=== PATIENT | female | born 1955 | race Caucasian/White ===

== ENCOUNTER 2023-03-13 08:52 | Emergency (ER) | payer SELFPAY ==
[2023-03-13] VITALS (15 sets, daily range): BP systolic 178–232; BP diastolic 92–118; PULSE 76–88; RESP 14–24; O2SAT 93–98; BMI 37.8
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
--- NOTE | 2023-03-13 09:09 | DI.CT.S_ITS ---
PROCEDURE: CT ANGIO HEAD AND NECK INDICATIONS: left sided weakness x 1 month and fall TECHNIQUE: Pre-contrast 4.5 mm thick sections acquired from the foramen magnum to the vertex. After the administration of intravenous contrast, 1 mm thick sections acquired from the aortic arch through the [place] of [place]. Post-contrast 4.5 mm thick sections then re-acquired from the foramen magnum to the vertex. MIP reformats of the arterial vasculature were utilized. For radiation dose reduction, the following was used: automated exposure control, adjustment of mA and/or kV according to patient size. COMPARISON: None. FINDINGS: Noncontrast CT Brain: Cerebrum, cerebellum and brainstem: Atrophy and multifocal white matter chronic ischemic change. 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 No white matter disease. Rivera-white distinction is well preserved throughout the exam. Ventricles: Appropriate size and position. No evidence of hydrocephalus. Skull base: The bony sella, pituitary gland and infundibulum are unremarkable. Posterior fossa and cerebellum are unremarkable. Visualized portions of the external auditory canals and tympanic cavity are within normal limits. Calvarium and Scalp: No scalp soft tissue swelling. The underlying calvarium is intact without skull fracture or lytic lesion. Paranasal Sinuses: Complete opacification left maxillary sinus with remodeling of the medial wall may reflect a mucocele or chronic mucosal sinus disease Mastoids: Unremarkable as visualized. No mastoid effusion. Cerebral CT Angiogram: Internal carotid arteries: Noncalcified atherosclerotic plaque in proximal left ICA results in 40% stenosis utilizing NASCET criteria. No stenosis in the right proximal ICA Anterior cerebral arteries: Unremarkable. No significant stenosis. No occlusion. No aneurysm. Middle cerebral arteries: Unremarkable. No significant stenosis. No occlusion. No aneurysm. Posterior cerebral arteries: Unremarkable. No significant stenosis. No occlusion. No aneurysm. Basilar artery: Unremarkable. No significant stenosis. No occlusion. No aneurysm. Vertebral arteries: Unremarkable. No significant stenosis. No dissection or occlusion. Dural venous sinuses: Unremarkable given phase of enhancement. Other: Arterial phase brain parenchyma unremarkable. Neck CT Angiogram: Internal carotid arteries: Unremarkable. No significant stenosis. No dissection or occlusion. Common carotid arteries: Unremarkable. No significant stenosis. No dissection or occlusion. External carotid arteries: Unremarkable. No occlusion. Vertebral arteries: Unremarkable. No significant stenosis. No dissection or occlusion. Aortic arch and mediastinum: Unremarkable. Other: Arterial phase neck soft tissue within normal limits. Both lung apices are clear. IMPRESSION: 1. Mild atherosclerotic plaque results in 40% proximal left ICA stenosis utilizing NASCET criteria. No intracranial large vessel occlusion, aneurysm or vascular malformation. 2. Incidental left maxillary sinus chronic mucosal sinus disease or possible mucocele, partially imaged Note: Any reported proximal ICA stenosis was calculated using NASCET guidelines. Approved by: Mick Mckeon M.D. on 03/13/2023 at 10:40
--- NOTE | 2023-03-13 09:31 | PC.NURSE ---
pt states starting around february 13 she has had left sided weakness mainly in her arm but also in her left leg. she has been seeing her PCP for this and given a referal to Ortho for nerve problems but also has an MRI with [facility] tomorrow to rule out possble silent stroke per EMS. pt states she has new onset SOB during this time and has been incontinent or urine since this time. she has always has some leaking and urgency but now she just cant make it to the bathroom in time. pt does have a diaper rash under her panus upon arrival to ER. Bruise to back of left arm noted as well
[2023-03-13 09:34] LABS: Add Manual Diff / Slide Review NO; Basophils Absolute Auto 100 /uL (0-100); Eosinophils Absolute Auto 0 /uL (0-450); Eosinophils Percent Auto 0.2 % (2-4); Hematocrit 49.2 % (36-46); Hemoglobin 16.7 g/dL (12.0-16.0); Lymphocytes Absolute Auto 1500 /uL (1100-4500); Lymphocytes Percent Auto 12.1 % (25-40); Mean Corpuscular HGB Conc 33.9 % (30-36); Mean Corpuscular Hemoglobin 29.2 PG (26-34); Mean Corpuscular Volume 86.1 fL (80-100); Monocytes Absolute Auto 700 /uL (0-900); Monocytes Percent Auto 5.8 % (3-14); Neutrophils Absolute Auto 10100 /uL (1500-7000); Neutrophils Percent Auto 80.9 % (50-75); Platelet Count 158 X10^3/uL (150-400); Red Blood Cell Count 5.72 X10^6/uL (4.0-5.2); Red Cell Distribution Width 14.7 % (11.6-14.8); White Blood Cell Count 12.5 X10^3/uL (4.5-11.0)
[2023-03-13 09:45] LABS: Alanine Aminotransferase 32 IU/L (<35); Albumin 4.1 g/dL (3.5-5.0); Albumin Globulin Ratio 1.1 (1.0-2.8); Alkaline Phosphatase 136 U/L (38-126); Aspartate Aminotransferase 29 IU/L (14-36); BUN Creatinine Ratio 23.4 (6-22); Bilirubin Total 1.2 mg/dL (0.2-1.3); Blood Urea Nitrogen 18 mg/dL (7-17); Calcium 9.1 mg/dL (8.4-10.2); Carbon Dioxide 29 mmol/L (22-32); Chloride 102 mmol/L (98-107); Creatine Kinase 104 U/L (30-135); Estimated Glomerular Filt Rate > 60 mL/min (>60); Globulin 3.6 g/dL (1.7-4.1); Glucose 295 mg/dL (80-110); HEMOLYSIS < 15 (0-50); Lipase 152 U/L (23-300); Sodium 138 mmol/L (137-145); Total Protein 7.7 g/dL (6.3-8.2)
[2023-03-13 09:56] LABS: Troponin I < 0.012 ng/mL (0.01-0.034)
[2023-03-13 10:00] LABS: CKMB % Relative Index 2.2 % (1.5-5.0); Creatine Kinase MB 2.24 ng/mL (<2.37)
--- NOTE | 2023-03-13 10:04 | DI.CT.S_ITS ---
PROCEDURE: CT PEL WO CON INDICATIONS: right hip pain TECHNIQUE: Noncontrast 3 mm axial sections acquired through the bony pelvis, with coronal and sagittal reformatting. COMPARISON: None. FINDINGS: Image quality: Excellent. Bones: Normal bone mineralization. Joint space is preserved. No evidence of fracture. Degenerative changes noted in the lower lumbar spine. Severe central stenosis noted at L4-5 Atherosclerotic vascular calcification noted the common iliac vasculature. Multiple diverticula arise from the sigmoid colon without evidence of diverticulitis. IMPRESSION: No evidence of pelvis or right proximal femoral fracture Degenerative lower lumbar spine results in severe L4-5 central stenosis Approved by: Mick Mckeon M.D. on 03/13/2023 at 10:00
--- NOTE | 2023-03-13 10:52 | PC.NURSE ---
sister dieudonne called, pt gave verbal permission to update her. sister informed that pt blood work has come back but we are waiting on results of scans to double check her head and pelvis. will call back with further update when we have more clear picture.
[2023-03-13 13:27] LABS: Appearance Urine UA CLEAR; Bilirubin Urine UA NEGATIVE (NEGATIVE); Color Urine UA YELLOW; Glucose Urine UA 2+ g/dL (Negative); Ketones Urine UA TRACE (NEGATIVE); Leukocyte Esterase Urine UA NEGATIVE (NEGATIVE); Nitrite Urine UA NEGATIVE (Negative); Occult Blood Urine UA TRACE-INTACT (Negative); Protein Urine UA NEGATIVE (Negative); Specific Gravity Urine UA 1.015 (1.000-1.035); Urobilinogen Urine UA 0.2 E.U./dL (0.2)
[2023-03-13 13:40] LABS: RBC Urine None Seen (0-5/HPF); WBC Urine None Seen (0-5/HPF)
[2023-03-13 13:41] LABS: Bacteria Urine None Seen; Culture Indicated Urine Cult Not Indicated; Squamous Epithelial Cell Urine None Seen (0-5/HPF)
== END 2023-03-13 14:14 | disposition home or self-care (01) ==
PROVIDERS: Emergency Provider Emergency Medicine
DX: S70.01XA Contusion of right hip, initial encounter (principal); S89.92XA Unspecified injury of left lower leg, initial encounter; R53.1 Weakness; M54.50 Low back pain, unspecified; R29.6 Repeated falls; W18.30XA Fall on same level, unspecified, initial encounter
CPT/HCPCS: 36415; 70496; 70498; 72192; 80053; 81001; 82550; 82553; 83690; 84484; 85025; 93005; 99284

== ENCOUNTER → 2023-04-06 14:57 | Outpatient (CLI) | payer SELFPAY ==
--- NOTE | 2023-04-06 | DI.MRI.S_ITS ---
PROCEDURE: MR CERVICAL SPINE WO CON INDICATIONS: CERVICALGIA TECHNIQUE: Noncontrast sagittal T1 spin echo and T2 fast spin echo, sagittal STIR, foraminal oblique sagittal T2 fast spin echo, and axial gradient echo or T2 fast spin echo through the cervical spine. COMPARISON: [facility] [place], CR, XR CERVICAL SPINE WITH OBLIQUES, 02/27/2023, 13:31. FINDINGS: Image quality: Excellent. Alignment and Curvature: There is slight straightening of the normal cervical lordosis. Trace anterolisthesis C2 on three and trace retrolisthesis C3 on four. Craniocervical junction appears normal. Bone Marrow: Marrow demonstrates normal overall signal. Spinal Cord: Visualized spinal cord has normal size and signal. No cerebellar tonsillar herniation. Paraspinous Soft Tissues: No paravertebral masses. Prevertebral soft tissues are normal in thickness. C2-C3: Normal appearance. C3-C4: Wmmu-wy-gfvxoycz disc osteophyte complex and uncovertebral joint hypertrophy, right greater than left. Mild facet arthropathy. Mild central canal narrowing, flattening of the anterior CSF space. Moderate right, and mild left neural foraminal narrowing. C4-C5: Mild circumferential disc osteophyte complex. Mild facet arthropathy. Moderate right and mild left neural foraminal narrowing. C5-C6: Mild uncovertebral joint hypertrophy. Mild to moderate bilateral neural foraminal narrowing. C6-C7: Normal appearance. C7-T1: Normal appearance. IMPRESSION: 1. Disc, endplate, and facet joint degeneration at C3-4 contributes to a mild central canal narrowing and bilateral foraminal narrowing, worse on the right. 2. Mild degenerative endplate and facet joint changes cause bilateral foraminal narrowing at C4-5 as described above. Dictated by: Ilsa Skinner M.D. on 04/06/2023 at 16:29 Approved by: Ilsa Skinner M.D. on 04/06/2023 at 16:40
== END ==
PROVIDERS: Referring Provider Physical Medicine & Rehabilitation Pain Medicine; Visit Provider Physical Medicine & Rehabilitation Pain Medicine
DX: M54.2 Cervicalgia (principal); M48.02 Spinal stenosis, cervical region
CPT/HCPCS: 72141

== ENCOUNTER → 2023-08-21 07:53 | Outpatient (CLI) | payer SELFPAY ==
--- NOTE | 2023-08-21 08:05 | DI.RAD.S_ITS ---
PROCEDURE: XR HIP W PEL IF DONE LT 2V INDICATIONS: hip pain TECHNIQUE: AP pelvis with lateral view(s) of the left hip(s). COMPARISON: CT, CT PEL WO CON, 03/13/2023, 9:54. FINDINGS: Bones: No fractures or dislocations. Pelvic ring appears intact. No suspicious bony lesions. Mild bilateral degenerative hip joint space narrowing. No erosions. Mild degenerative changes are present the lower lumbar spine. Unchanged appearance of sclerosis along the left inferior pubic symphysis stable compared to prior CT exam. Soft tissues: The visualized bowel gas pattern is normal. No suspicious soft tissue calcifications. IMPRESSION: Early arthritic changes as above. Stable sclerosis at the pubic symphysis. This could be related to prior trauma or asymmetrical degenerative change. If pain is present within this region, MRI may be obtained for further evaluation. Dictated by: Carlee Rojas M.D. on 08/21/2023 at 15:08 Approved by: aCrlee Rojas M.D. on 08/21/2023 at 15:10
[2023-08-21 09:58] LABS: Add Manual Diff / Slide Review NO; Basophils Absolute Auto 100 /uL (0-100); Basophils Percent Auto 1.1 % (0-2); Eosinophils Absolute Auto 100 /uL (0-450); Eosinophils Percent Auto 1.5 % (2-4); Hematocrit 47.7 % (36-46); Hemoglobin 16.5 g/dL (12.0-16.0); Lymphocytes Absolute Auto 2200 /uL (1100-4500); Lymphocytes Percent Auto 29.8 % (25-40); Mean Corpuscular HGB Conc 34.5 % (30-36); Mean Corpuscular Hemoglobin 30.7 PG (26-34); Mean Corpuscular Volume 88.8 fL (80-100); Monocytes Absolute Auto 500 /uL (0-900); Monocytes Percent Auto 7.4 % (3-14); Neutrophils Absolute Auto 4400 /uL (1500-7000); Neutrophils Percent Auto 60.2 % (50-75); Platelet Count 185 X10^3/uL (150-400); Red Blood Cell Count 5.37 X10^6/uL (4.0-5.2); Red Cell Distribution Width 14.7 % (11.6-14.8); White Blood Cell Count 7.3 X10^3/uL (4.5-11.0)
[2023-08-21 10:01] LABS: Hemoglobin A1C% w Est Avg Glu 6.9 % (4.0-6.0)
[2023-08-21 10:25] LABS: Cholesterol 223 mg/dL (140-199); HDL Cholesterol 85 mg/dL (40-60); LDL Cholesterol Calculated 102 mg/dL (<100); Triglycerides 178 mg/dL (35-150)
[2023-08-21 10:55] LABS: TSH w/ Reflex to FT4 3.19 uIU/mL (0.47-4.68)
[2023-08-21 11:02] LABS: Creatinine Urine Random 112.1 mg/dL
[2023-08-21 11:09] LABS: Microalbumi Creatinin Ratio Ur 111.5 ug/mg CR (<30); Microalbumin Urine Random 12.5 mg/dL (0-1.6)
[2023-08-21 11:22] LABS: HIV 1 & 2 Ab/Ag 4th Gen Combo NEGATIVE (NEGATIVE); Hep C Virus Ab w/Reflex Quant NEGATIVE s/c (NEGATIVE)
== END ==
PROVIDERS: PCP Family Medicine; Referring Provider Family Medicine; Visit Provider Family Medicine
DX: M25.552 Pain in left hip (principal); G89.29 Other chronic pain; I10 Essential (primary) hypertension; R73.9 Hyperglycemia, unspecified; Z11.59 Encounter for screening for other viral diseases; Z11.4 Encounter for screening for human immunodeficiency virus [HIV]
CPT/HCPCS: 36415; 73502; 80061; 82043; 82570; 83036; 84443; 85025; 86803; 87389

== ENCOUNTER → 2024-05-16 11:02 | Outpatient (CLI) | payer SELFPAY ==
[2024-05-16 12:06] LABS: Hemoglobin A1C% w Est Avg Glu 6.5 % (4.0-6.0)
== END ==
LOC: LAB 11:03
PROVIDERS: PCP Family Medicine; Referring Provider Family Medicine; Visit Provider Family Medicine
DX: E11.9 Type 2 diabetes mellitus without complications (principal)
CPT/HCPCS: 36415; 83036

== ENCOUNTER 2024-05-17 14:25 | Emergency (ER) | payer SELFPAY ==
[2024-05-17] VITALS (11 sets, daily range): BP systolic 148–209; BP diastolic 72–97; PULSE 71–83; RESP 16; TEMP 36.5; O2SAT 96–98; BMI 30.2
--- NOTE | 2024-05-17 14:46 | EKG_ITS ---
[address] [address] Test Date: 2024-05-17 Pat Name: Jasmine Arriola Department: [facility] Room: Gender: Female Police Manager: HOMER : 1955 Requested By: Order Number: [id number] Reading MD: Augie Artis MD Measurements Intervals [place] Rate: 70 P: 51 CO: 174 QRS: 45 QRSD: 96 T: 53 QT: 418 QTc: 451 Interpretive Statements Sinus rhythm with premature atrial complexes Electronically Signed On 05-17-2024 22:35:14 PDT by Augie Artis MD
[2024-05-17 14:49] LABS: Add Manual Diff / Slide Review NO; Basophils Absolute Auto 100 /uL (0-100); Basophils Percent Auto 0.6 % (0-2); Eosinophils Absolute Auto 100 /uL (0-450); Eosinophils Percent Auto 0.7 % (2-4); Hematocrit 42.9 % (36-46); Hemoglobin 14.4 g/dL (12.0-16.0); Lymphocytes Absolute Auto 1700 /uL (1100-4500); Lymphocytes Percent Auto 16.9 % (25-40); Mean Corpuscular HGB Conc 33.7 % (30-36); Mean Corpuscular Hemoglobin 29.7 PG (26-34); Mean Corpuscular Volume 88.3 fL (80-100); Monocytes Absolute Auto 600 /uL (0-900); Monocytes Percent Auto 5.8 % (3-14); Neutrophils Absolute Auto 7600 /uL (1500-7000); Platelet Count 194 X10^3/uL (150-400); Red Blood Cell Count 4.85 X10^6/uL (4.0-5.2); Red Cell Distribution Width 14.4 % (11.6-14.8)
[2024-05-17] MEDS: MECLIZINE HCL 12.5 MG TABLET 25 MG PO (14:56)
--- NOTE | 2024-05-17 15:00 | ED.NAVMDI ---
HPI - Nausea/Vomiting/Diarrhea General Chief complaint: Nausea/Vomiting/Diarrhea Stated complaint: Vertigo with N/V Time Seen by Provider: 05/17/24 14:40 Source: patient and EMS Mode of arrival: EMS History of Present Illness HPI Narrative: Patient is a 69-year-old female. Has a history of a TIA. Not on blood thinners who is here for evaluation of 3 weeks of occasional episodes of vertigo. She states that it normally occurs with change in position specifically when she goes from standing to lying down. Causes her to have quite a bit of nausea. Today she has a headache. No numbness and tingling in the upper and lower extremities. Before today she stated that she would just wait in the symptoms would resolve. Today symptoms were more persistent. She also describes a fullness in her head. Related Data Previous Rx's Medication Instructions Recorded blood sugar diagnostic #100 ea 08/17/23 blood-glucose meter #1 ea 08/17/23 lancets 28 gauge #100 ea 08/17/23 Disabled Parking Permint #1 ea 09/14/23 atorvastatin 20 mg tablet (Lipitor) 20 mg PO BEDTIME cholesterol #90 09/14/23 tabs losartan 50 mg tablet 50 mg PO DAILY blood pressure #90 09/14/23 tabs metformin 500 mg tablet,extended 500 mg PO BID diabetes #180 tabs 09/14/23 release 24 hr amlodipine 5 mg tablet (Norvasc) 5 mg PO DAILY #90 tabs 02/15/24 bupropion HCl 150 mg 24 hr tablet, 150 mg PO QAM #30 tabs 02/15/24 extended release (Wellbutrin XL) fluticasone propionate 50 2 spray intranasal DAILY PRN nasal 05/16/24 mcg/actuation nasal congestion #16 grams spray,suspension (Flonase Allergy Relief) meclizine 25 mg tablet 25 mg PO TID PRN dizziness 30 days 05/16/24 #90 tabs ondansetron 4 mg disintegrating 4 mg PO Q6H PRN nausea and 05/17/24 tablet vomiting #14 tabs Allergies Allergy/AdvReac Type Severity Reaction Status Date / Time codeine Allergy Verified 05/16/24 10:20 Review of Systems Review of Systems ROS Unobtainable: All systems reviewed & are unremarkable except as noted in HPI and below Patient History Medical History Mixed hyperlipidemia Type 2 diabetes mellitus without complication, with no history of insulin use Fall (~03/13/23) Near sighted Plantar warts Osteoarthritis (~1974) Allergies Rheumatic fever Mumps Measles Chicken pox Anemia Thyroid disease Tobacco dependence Depression, unspecified Benign essential HTN Surgical History (Updated 09/13/23 @ 19:37 by Pau Brooks) Anesthesia History of laparoscopy (~1990) History of section (~01/28/85) History of tonsillectomy (~1967) History of hysterectomy (~1992) Family History (Updated 09/13/23 @ 19:41 by Pau Brooks) Father History of heart disease Mother History of heart disease Congestive heart failure Sister History of heart disease Grandfather History of heart disease Grandmother History of heart disease Grandfather Stroke Social History Smoking Status: Current every day smoker Smoking Status: Current every day smoker Substance Use Type: marijuana Exam Initial Vital Signs Initial Vital Signs: Vital Signs Temperature 97.7 F 05/17/24 14:26 Pulse Rate 75 05/17/24 14:26 Respiratory Rate 16 05/17/24 14:26 Blood Pressure 194/91 H 05/17/24 14:26 Pulse Oximetry 98 05/17/24 14:26 Oxygen Delivery Method Room Air 05/17/24 14:26 Const General: cooperative, comfortable and No ill appearing HENMT Head: normal to inspection and normocephalic Resp Effort & Inspection: normal respiratory effort Auscultation: clear to auscultation bilaterally Cardio Rate: regular rate Rhythm: regular rhythm GI Inspection: normal to inspection Neuro General: patient alert, patient awake, patient oriented x3 and moves all extremities Cognition: normal cognition Speech: speech normal Gait: normal gait Course Orders Ordered: ED Orders 05/17/24 14:38 Complete Blood Count AUTO DIFF Stat Comprehensive Metabolic Panel Stat Lipase Stat EKG-12 Lead Stat 05/17/24 15:00 CT head/brain wo con Stat Ondansetron HCl (Ondansetron 4 Mg/2 Ml Inj) 4 mg IV NOW PRN PRN Reason: Nausea And Vomiting Ondansetron HCl (Ondansetron 4 Mg Odt) 4 mg PO NOW PRN PRN Reason: Nausea And Vomiting Discontinued Medications Meclizine HCl (Meclizine Hcl 12.5 Mg Tablet) 25 mg PO NOW ONE Stop: 05/17/24 14:53 Last Admin: 05/17/24 14:56 Dose: 25 mg Documented By: ROBERT Vital Signs Vital signs: Vital Signs - 8 hr 05/17/24 14:26 05/17/24 14:32 05/17/24 14:32 Temperature 97.7 F Pulse Rate 75 77 Respiratory Rate 16 Blood Pressure 194/91 H 194/91 H Pulse Oximetry 98 96 Oxygen Delivery Method Room Air Room Air 05/17/24 15:00 05/17/24 15:33 05/17/24 15:49 Temperature Pulse Rate 73 71 72 Respiratory Rate Blood Pressure Pulse Oximetry 98 97 97 Oxygen Delivery Method Room Air Room Air 05/17/24 15:49 05/17/24 16:00 05/17/24 16:00 Temperature Pulse Rate 74 Respiratory Rate Blood Pressure 167/76 H 148/72 H Pulse Oximetry 97 Oxygen Delivery Method Room Air MDM - Nausea/Vomiting/Diarrhea Lab Data Attestation: I reviewed the patient's lab results. 05/17/24 14:38 05/17/24 14:38 Labs: Lab Results 05/17/24 Range/Units 14:38 WBC 10.0 (4.5-11.0) X10^3/uL RBC 4.85 (4.0-5.2) X10^6/uL Hgb 14.4 (12.0-16.0) g/dL Hct 42.9 (36-46) % MCV 88.3 (80-100) fL MCH 29.7 (26-34) PG MCHC 33.7 (30-36) % RDW 14.4 (11.6-14.8) % Plt Count 194 (150-400) X10^3/uL Neut % (Auto) 76.0 H (50-75) % Lymph % (Auto) 16.9 L (25-40) % [place] % (Auto) 5.8 (3-14) % Eos % (Auto) 0.7 L (2-4) % Baso % (Auto) 0.6 (0-2) % Neut # (Auto) 7600 H (3141-9032) /uL Lymph # (Auto) 1700 (4175-0010) /uL [place] # (Auto) 600 (0-900) /uL Eos # (Auto) 100 (0-450) /uL Baso # (Auto) 100 (0-100) /uL Sodium 141 (137-145) mmol/L Potassium 3.6 (3.4-5.1) mmol/L Chloride 108 H (98-107) mmol/L Carbon Dioxide 27 (22-32) mmol/L BUN 25 H (7-17) mg/dL Creatinine 1.01 (0.52-1.04) mg/dL Estimated GFR > 60 (>60) mL/min BUN/Creatinine Ratio 24.8 H (6-22) Glucose 143 H (80-110) mg/dL Calcium 9.9 (8.4-10.2) mg/dL Total Bilirubin 0.8 (0.2-1.3) mg/dL AST 21 (14-36) IU/L ALT 22 (<35) IU/L Alkaline Phosphatase 107 (38-126) U/L Total Protein 7.8 (6.3-8.2) g/dL Albumin 4.4 (3.5-5.0) g/dL Globulin 3.4 (1.7-4.1) g/dL Albumin/Globulin Ratio 1.3 (1.0-2.8) Lipase 226 (23-300) U/L Imaging Data CT scan - head: Radiologist's Impression: PROCEDURE: CT HEAD/BRAIN WO CON INDICATIONS: vertigo with headache TECHNIQUE: Noncontrast 4.5 mm thick angled axial sections acquired from the foramen magnum to the vertex, with coronal and sagittal reformats. For radiation dose reduction, the following was used: automated exposure control, adjustment of mA and/or kV according to patient size. COMPARISON: CT angiogram of head and neck dated 03/13/2023. FINDINGS: Image quality: Diagnostic. CSF spaces: Basal cisterns are patent. No extra-axial fluid collections. The ventricles are symmetric in size and shape. Brain: No intracranial bleeds or masses. There is cerebral volume loss for age, with resultant ventricular and sulcal prominence. There are periventricular and deep white matter chronic small vessel ischemic changes. There is intracranial internal carotid artery atherosclerosis. Skull and face: Calvarium and visualized facial bones appear intact, without suspicious lesions. Sinuses: Again noted is complete opacification of left maxillary sinus with remodeling of medial wall suggestive of mucocele or chronic mucosal sinus disease. IMPRESSION: No acute intracranial pathology. No significant changes from previous study. Extensive periventricular and deep white matter chronic small vessel ischemic changes. ECG Data Attestation: I personally reviewed and interpreted this ECG as follows: Interpretation: Sinus rhythm Ventricular rate is 70 Normal axis Normal QRS Normal QTC No ST T wave changes MDM Narrative Medical decision making narrative: Patient has positional vertigo. We were able to reproduce that here in the emergency department. Her head CT is unremarkable. Labs unremarkable. EKG is unremarkable. She was actually seen by her primary doctor yesterday and was given a prescription for meclizine and referral for physical therapy. I feel that this is appropriate. Will hold on any more advanced imaging for now. She was afebrile. Will send home with a prescription for Zofran. We did discuss the Maricarmen maneuver. Discussed return precautions and follow-up instructions. She expressed understanding and agreement with plan. Discharge Plan Departure Patient Disposition: Home Clinical Impression: Vertigo Instructions: DI for Vertigo Activity Restrictions/Additional Instructions: I do recommend that you look up and watch a video on the Maricarmen maneuver. This can be helpful with treatment of the vertigo. Use the meclizine that you were given a prescription for yesterday by your primary doctor. Continue rest of your medications as directed. Return to the emergency department for new symptoms. Prescriptions: New ondansetron 4 mg tablet,disintegrating 4 mg PO Q6H PRN (Reason: nausea and vomiting) Qty: 14 0RF No Action (DME) blood-glucose meter Misc See Rx Instructions .ROUTE .MEDSUPPLY Qty: 1 0RF Rx Instructions: As directed, once daily as needed. brand of choice (DME) lancets 28 gauge misc See Rx Instructions .ROUTE .MEDSUPPLY Qty: 100 3RF Rx Instructions: As directed, once daily as needed. brand of choice (DME) blood sugar diagnostic Strip See Rx Instructions .ROUTE .MEDSUPPLY Qty: 100 3RF Rx Instructions: As directed, once daily as needed. brand of choice metformin 500 mg tablet extended release 24 hr 500 mg PO BID Qty: 180 3RF losartan 50 mg tablet 50 mg PO DAILY Qty: 90 3RF (DME) Disabled Parking Permint See Rx Instructions .ROUTE .MEDSUPPLY Qty: 1 0RF Rx Instructions: I find this patient to be medically disabled and qualified for Disabled Parking as indicated and signed on the Accompanying Disabled Parking Application for individuals. atorvastatin [Lipitor] 20 mg tablet 20 mg PO BEDTIME Qty: 90 3RF amlodipine [Norvasc] 5 mg tablet 5 mg PO DAILY Qty: 90 3RF bupropion HCl [Wellbutrin XL] 150 mg tablet extended release 24 hr 150 mg PO QAM Qty: 30 11RF fluticasone propionate [Flonase Allergy Relief] 50 mcg/actuation spray,suspension 2 spray intranasal DAILY PRN (Reason: nasal congestion) Qty: 16 11RF Rx Instructions: administer into each nostril meclizine 25 mg tablet 25 mg PO TID PRN (Reason: dizziness) 30 Days Qty: 90 5RF Referrals: Ford Chairez MD [Physician] - Calixto Johnson DO [Primary Care Provider] - Stand Alone Forms: Patient Portal/API
[2024-05-17 15:01] LABS: Alanine Aminotransferase 22 IU/L (<35); Albumin 4.4 g/dL (3.5-5.0); Albumin Globulin Ratio 1.3 (1.0-2.8); Alkaline Phosphatase 107 U/L (38-126); Aspartate Aminotransferase 21 IU/L (14-36); BUN Creatinine Ratio 24.8 (6-22); Bilirubin Total 0.8 mg/dL (0.2-1.3); Blood Urea Nitrogen 25 mg/dL (7-17); Calcium 9.9 mg/dL (8.4-10.2); Carbon Dioxide 27 mmol/L (22-32); Chloride 108 mmol/L (98-107); Estimated Glomerular Filt Rate > 60 mL/min (>60); Globulin 3.4 g/dL (1.7-4.1); Glucose 143 mg/dL (80-110); HEMOLYSIS < 15 (0-50); Lipase 226 U/L (23-300); Potassium 3.6 mmol/L (3.4-5.1); Sodium 141 mmol/L (137-145); Total Protein 7.8 g/dL (6.3-8.2)
== END 2024-05-17 17:20 | disposition home or self-care (01) ==
PROVIDERS: Emergency Provider Emergency Medicine; PCP Family Medicine
DX: R42 Dizziness and giddiness (principal); I10 Essential (primary) hypertension; F17.200 Nicotine dependence, unspecified, uncomplicated
CPT/HCPCS: 70450; 80053; 81003; 83690; 85025; 93005; 99283; 99284

== ENCOUNTER → 2024-11-14 11:13 | Outpatient (CLI) | payer SELFPAY ==
[2024-11-14 12:44] LABS: Hemoglobin A1C% w Est Avg Glu 5.6 % (4.0-6.0)
== END ==
LOC: LAB 11:15
PROVIDERS: PCP Family Medicine; Referring Provider Family Medicine; Visit Provider Family Medicine
DX: E11.9 Type 2 diabetes mellitus without complications (principal); I10 Essential (primary) hypertension
CPT/HCPCS: 36415; 83036

== ENCOUNTER → 2025-10-08 16:30 | Outpatient (ROUT) | payer SELFPAY ==
[2025-10-08 16:36] LABS: Appearance Urine UA CLOUDY; Bilirubin Urine UA NEGATIVE (NEGATIVE); Color Urine UA YELLOW; Glucose Urine UA NEGATIVE (Negative); Ketones Urine UA NEGATIVE (NEGATIVE); Leukocyte Esterase Urine UA 2+ (NEGATIVE); Nitrite Urine UA NEGATIVE (Negative); Occult Blood Urine UA 1+ (Negative); Protein Urine UA 1+ (Negative); Specific Gravity Urine UA 1.025 (1.000-1.035); Urobilinogen Urine UA 0.2 E.U./dL (0.2)
[2025-10-08 16:50] LABS: pH Urine UA 5.5 (4.5-8.0)
[2025-10-08 17:12] LABS: Culture Indicated Urine Specimen Cultured
== END ==
LOC: LAB 16:31
PROVIDERS: PCP Family Medicine; Visit Provider Hospitalist
DX: Z47.89 Encounter for other orthopedic aftercare (principal); S72.142D Displaced intertrochanteric fracture of left femur, subsequent encounter for closed fracture with routine healing; R29.6 Repeated falls; E11.9 Type 2 diabetes mellitus without complications; E78.5 Hyperlipidemia, unspecified; I10 Essential (primary) hypertension; D62 Acute posthemorrhagic anemia; F33.1 Major depressive disorder, recurrent, moderate; R42 Dizziness and giddiness; M15.9 Polyosteoarthritis, unspecified
CPT/HCPCS: 81001; 87077; 87086

== ENCOUNTER 2025-10-22 13:13 | Emergency (ER) | payer SELFPAY ==
--- OUTSIDE RECORDS SUMMARY | 2025-10-15 16:13 | XMS_ITS | Continuity of Care Document ---
Author Organization [facility] [place] [address] Phone Care Team Providers Care Cook [employer] Name Role Phone Louie Hodges DO Attending Provider [phone] Louie Hodges DO Referring Provider [phone] Care Teams Visit Care Team Team Status: Inactive Member Role/Relationship Status Dates Louie Hodges DO Attending Provider Active Start: October 15, 2025 End: October 15, 2025 Louie Hodges DO Referring Provider Active Start: October 15, 2025 End: October 15, 2025 Visit Care Team Team Status: Inactive Member Role/Relationship Status Dates Louie Hodges DO Attending Provider Active Start: October 15, 2025 End: October 15, 2025 Chief Complaint and Reason for Visit Chief Complaint Admit Date Fracture of left hip October 15, 2025 7:21am Lt hip nailing 09/23/25 October 15, 025 8:24am Reason for Referral Type Reason(s) Provider Provider Contac t Information Provider Address Start Date Fracture of left hip S72.002A - Fracture of unspecified part of neck of left femur, initial encounter for closed fracture [facility] Work Phone: [address] [place] [address] October 15, 2025 Allergies, Adverse Reactions, Alerts Allergen Type Severity Reaction Last Updated Verified Status codeine Adverse Reaction Mild Itching September 22, 2025 10:07am Yes Active Social History Smoking Status Status Start Date End Date Date of Observa tion Smokes tobacco daily (finding) September 22, 2025 3:29pm Observation Status Observation Response Date of Response Living arrangement At home October 8:32am Legal Sex Female Sex Assigned At Female January Problems Active Problems Problem Diagnosis/Recorded Date Onset Date Stat us Depression September 25, 2025 11:07am Unknown Active Murmur, cardiac September 27, 2025 3:31pm Unknown Active Thrombocytopenia September 25, 2025 11:51am Unknown Active Acute blood loss anemia September 25, 2025 11:50am Un known Active Inactive/Resolved Problems Problem Diagnosis/Recorded Date Onset Date Stat us Hx of exploratory laparotomy September 22, 2025 11:05 am Unknown Resolved DM2 (diabetes mellitus, type 2) September 22, 2025 11 :02am Unknown Resolved TIA (transient ischemic attack) September 22, 2025 11 :02am Unknown Resolved HLD (hyperlipidemia) September 22, 2025 11:02am Unkno wn Resolved Hx of hysterectomy September 22, 2025 11:04am Unknown Resolved Hx of tonsillectomy September 22, 2025 11:04am Unknow n Resolved Fracture of left hip September 22, 2025 10:50am Unkno wn Resolved HTN (hypertension) September 22, 2025 11:02am Unknown Resolved Fall September 23, 2025 8:45am Unknown R esolved Medications Medication Status Dose Units Route Directions Qty Days Refills S tart Date Stop Date End Date Reason(s) Instructions Adherence Atorvastati n 20 mg [facility] 2024 11:22 am Amlodipine 5 mg tablet Discont inued 5 MG PO DAILY [facility] 12[facility] m [facility] 2024 11:22 am Losartan 100 mg tablet Discont inued 100 MG PO Daily PM [facility] 12:00a 2024 11:22 am Metformin 500 mg tablet extended release 24 hr Discont inued 500 MG PO TWICE A DAY [facility] 12:[facility] m [facility] 2024 11:22 am Bupropion Hcl 150 mg tablet extended release 24 hr Discont inued 150 MG PO DAILY [facility] 12:00[facility] m [facility] 2024 11:22 am Ibuprofen (Advil) 200 mg tablet Discont inued 400 MG PO TWICE A DAY as needed for fever or pain [facility] 12:[facility] 2024 11:22 am Aspirin 325 mg Tablet,Fabi yed Release (Dr/Ec) Active 325 MG PO DAILY 28 0 Novemb er 2024 12:00a m Decem martín 2024 12:00 am Fracture of left hip Unknown Baclofen 10 mg Tablet Active 5 MG PO THREE TIMES A DAY as needed for Spasms 45 0 Novemb er 2024 12:00a m Fracture of left hip Unknown Acetaminoph en 500 mg capsule Active 1000 MG PO THREE TIMES A DAY 180 0 Novemb er 2024 12:00a m Fracture of left hip Unknown Diclofenac Sodium (Arthritis Pain (Diclofenac )) 1 % Gel Active 2 GM TOP FOUR TIMES DAILY as needed for Mild Pain (Level 1-3) 100 0 Novemb er 2024 12:00a m Fracture of left hip Unknown Sennosides (Senna Lax) 8.6 mg Tablet Active 8.6 MG PO TWICE A DAY 60 0 Nove mb er 2024 12:00a m Fracture of left hip Take while on narcotics to prevent constipation Unknown Polyethylen e Glycol 3350 17 gram Powder In Packet Active 17 GM PO DAILY 30 0 Nove[facility] er 2024 12:00a m Fracture of left hip Take while on narcotics to prevent constipation Unknown Oxycodone 5 mg Tablet Active 5 MG PO EVERY 6 HOURS as needed for Pain 5 to 7 40 0 N[facility] er 2024 Fracture of left hip Unknown Atorvastati n 20 mg tablet Active 20 MG PO BEDTIME 30 0 N[facility] er 2024 11:21a m Hyperlipid emia Hyperlipid emia, unspecifie d Unknown Amlodipine 5 mg tablet Active 5 MG PO DAILY 30 0 Nove mb er 2024 11:21a m Hypertensi on Essential (primary) hypertensi on Unknown Losartan 100 mg tablet Active 100 MG PO Daily PM 30 0 Nove[facility] er 2024 11:21a m Hypertensi on Essential (primary) hypertensi on Unknown Metformin 500 mg tablet extended release 24 hr Active 500 MG PO TWICE A DAY 60 0 Nove mb er 2024 11:21a m Type 2 diabetes mellitus Type 2 diabetes mellitus without complicati ons Unknown Bupropion Hcl 150 mg tablet extended release 24 hr Active 150 MG PO DAILY 30 0 [facility] 2024 11:21a m Unknown Cyclobenzap rine 5 mg tablet Active 5 MG PO THREE TIMES A DAY as needed for muscle spasm 45 0 Nove[facility] er 2024 12:00a m Fracture of left hip Unknown Medical Equipment Device Date Implanted Device Details INTERTAN 10S [id number] [id number] LT September 23 TRIGEN L-P SCREW [id number] September 23, 2025 TRIGEN LAG SCRW 100/95MM September 23, 2025 Procedures Procedure Date Performed Status XR Hip w/Pelvis 2-3V LT October 15, 2025 7:22 am completed Advance Directives Advance Directive Response Recorded Date/ Time Advance Directives on file? No Yunierchio yani 2024 3:29pm Advance Directives No February 15 023 9:01am Advance Directives Information Provided No February 15, 2023 9:01am Insurance Providers Guarantor KATHYA Chio DOMINIC Address [address] [place] [phone] Contact Info. Home Phone: Payer Group Member ID Coverage Type Subscriber Relationship to Subscriber Effective Date Expiration Date [employer] 000 null KATHYA Barroso DOMINIC Id: [id number] [address] [place] [id number] Home Phone: Email: [email or web address] Encounter Location(s) Arrival/Admit Date Discharge/Departure Date Discharge/Departure Disposition Provider(s) Departed Clinical -Diagnostic Imaging ([place]) October 15, 2025 7:21am October 15, 2025 11:59pm Discharged to home care or self care (routine discharge) Louie Hodges DO Departed Physician/ Provider Office Visit -Orthopedic Care October 15, 2025 8:24am October 15, 2025 9:14am Discharged to home care or self care (routine discharge) Louie Hodges DO Plan of Treatment Author Louie Hodges [facility] Authored October 15, 2025 8:42am The patient is in for follow -up of the left hip intramedullary nail. Her most recent x-rays look excellent. The problem is the patient is in excruciating pain however it is not just her hip she has multiple problems and she is complaining very much about having to come down from [place] for these postoperative visits. She is requesting to go to a closer facility up by her. I am in a go ahead and put a call in to the physician special ed assistant up in [place] and see if they will except her postoperative care as she is only about 4 or 5 weeks out from surgery I would imagine she would need follow-up for the next maybe 1 to 2 months before being released.If they do not except the care I am happy to take care of her down here and if that is the case I will follow-up with her in 1 month with a new x-ray.The patient is allowed to be weightbearing as tolerated and we are encouraging the therapy up at her place to get her up and ambulating even though she does complain of a lot of pain.The patient also has new onset dizziness that she states started since the surgery. I am in a go ahead and order an H&H just to make sure she does not have a low blood count but if that is normal then I will have to refer to her family physician for care as to why she has new onset dizziness. Future Tests Future scheduled test information is unavailable Pending Tests Test Name Ordered Date Scheduled Date CBC - COMP BLD CT W/AUTO DIFF October 15 5 8:50am Future Visits Future appointment information is unavailable Future Procedures Future procedure information is unavailable Future Medications Future medication information is unavailable Patient Instructions Patient instructions are unavailable
[2025-10-22] VITALS (12 sets, daily range): BP systolic 138–178; BP diastolic 79–89; PULSE 77–88; RESP 12–16; TEMP 36; O2SAT 95–98; BMI 29.5
--- NOTE | 2025-10-22 14:43 | ED_ITS ---
HPI - Recheck/Abnormal Lab/Rx General Chief Complaint: Recheck/Abnormal Lab/Rx Stated Complaint: Hallucinations Time Seen by Provider: 10/22/25 14:43 Source: EMS Mode of arrival: EMS History of Present Illness HPI narrative: Patient 70-year-old female history of hypertension hyperlipidemia type 2 diabetes presenting today at the request of her sister. Patient says that she was dropped off by her sister to see if she has dementia. She lives at home with her son he feels like they are well cared for and have good relationship. She feels safe there. She is denying any kind hallucinations. She reports that her sister is jealous and they have had ongoing relationship issues, she reports that she was recently treated for UTI but she feels like those symptoms have improved. She really denies any symptoms she is able to provide appropriate history. Nursing notes report that she recently switched from Wellbutrin to sertraline. She was also just treated for a UTI which was diagnosed here on October 08. His spoken with son who states that she resides at [facility] patient does not seem to know that she is at [facility]. She recently fell broke her hip and is at rehab Related Data Previous Rx's ?Medication ?Instructions ?Recorded blood sugar diagnostic #100 ea 08/17/23 blood-glucose meter #1 ea 08/17/23 lancets 28 gauge #100 ea 08/17/23 Disabled Parking Permint #1 ea 09/14/23 amlodipine 5 mg tablet (Norvasc) 5 mg PO DAILY #90 tab s 11/14/24 bupropion HCl 150 mg 24 hr tablet, 150 mg PO QAM #30 t abs 11/14/24 extended release (Wellbutrin XL) losartan 100 mg tablet 100 mg PO DAILY blood pressu re 11/14/24 #100 tabs atorvastatin 20 mg tablet (Lipitor) 20 mg PO BEDTIME c holesterol #90 05/13/25 tabs metformin 500 mg tablet,extended 500 mg PO BID diabete s #180 tabs 05/13/25 release 24 hr Allergies Allergy/AdvReac Type Severity Reaction Status Date / Time codeine Allergy Verified 05/13/25 11:30 Patient History Medical History Heart murmur Mixed hyperlipidemia Type 2 diabetes mellitus without complication, with no history of insulin use Fall (~03/13/23) Near sighted Plantar warts Osteoarthritis (~1974) Allergies Rheumatic fever Mumps Measles Chicken pox Anemia Thyroid disease Tobacco dependence Depression, unspecified Benign essential HTN Surgical History Anesthesia History of laparoscopy (~1990) History of section (~01/28/85) History of tonsillectomy (~1967) History of hysterectomy (~1992) Family History Father History of heart disease Mother History of heart disease Congestive heart failure Sister History of heart disease Grandfather History of heart disease Grandmother History of heart disease Grandfather Stroke Exam Initial Vital Signs Initial Vital Signs: Vital Signs Temperature 96.8 F L 10/22/25 13:15 Pulse Rate 82 10/22/25 13:15 Respiratory Rate 12 10/22/25 13:15 Blood Pressure 174/89 H 10/22/25 13:15 Pulse Oximetry 98 10/22/25 13:15 Oxygen Delivery Method Room Air 10/22/25 13:15 GENERAL: Alert pleasant well-appearing 70-year-old female and in no acute distress. HEENT: Head atraumatic,EOMI, pupils reactive, face symmetric, moist mucous membranes CARDIOVASCULAR: Regular rate and rhythm without murmurs, rubs or gallops. RESPIRATORY: Breath sounds equal bilaterally, no wheezes rales or rhonchi. ABDOMEN: Soft, nontender. Normoactive bowel sounds all 4 quadrants. No guarding or rebound.s EXTREMITIES: Normal range of motion, no clubbing or edema. Neurovascularly intact NEUROLOGICAL: Alert and oriented x4. Moving all extremities SKIN: Warm, dry, no laceration, no petechiae, no rashes or lesions. Course Orders Ordered: ED Orders 10/22/25 15:15 CBC Auto Diff [Complete Blood Count AUTO DIFF] Stat CMP [Comprehensive Metabolic Panel] Stat 10/22/25 16:51 Ictotest Urine Stat UA Complete [Urinalysis and Microscopic] Stat Discontinued Medications Ketorolac Tromethamine (Ketorolac 30 Mg/Ml Vial) 15 mg IV NOW ONE Stop: 10/22/25 16:46 Last Admin: 10/22/25 17:25 Dose: 15 mg Documented By: YAYO Vital Signs Vital signs: Vital Signs - 8 hr 10/22/25 13:15 10/22/25 13:30 10/22/25 14:00 Temperature 96.8 F L Pulse Rate 82 86 85 Respiratory Rate 12 Blood Pressure 174/89 H 170/79 H 171/81 H Pulse Oximetry 98 96 95 Oxygen Delivery Method Room Air Room Air 10/22/25 14:34 10/22/25 14:35 10/22/25 14:35 Temperature Pulse Rate 88 87 Respiratory Rate Blood Pressure 138/83 Pulse Oximetry 97 97 Oxygen Delivery Method 10/22/25 15:00 10/22/25 15:30 10/22/25 16:00 Temperature Pulse Rate 88 87 83 Respiratory Rate 12 13 13 Blood Pressure Pulse Oximetry 98 96 97 Oxygen Delivery Method 10/22/25 16:30 10/22/25 17:00 10/22/25 17:30 Temperature Pulse Rate 80 77 80 Respiratory Rate 13 13 12 Blood Pressure Pulse Oximetry 95 96 97 Oxygen Delivery Method 10/22/25 18:54 Temperature Pulse Rate 83 Respiratory Rate 16 Blood Pressure 178/79 H Pulse Oximetry 98 Oxygen Delivery Method Room Air MDM - Recheck/Abnormal Lab/Rx Lab Data 10/22/25 15:15 10/22/25 15:15 Labs: Lab Results 10/22/25 10/22/25 Range/Units 15:15 16:51 WBC 8.5 (4.5-11.0) X10^3/uL RBC 3.88 L (4.0-5.2) X10^6/uL Hgb 10.9 L (12.0-16.0) g/dL Hct 32.9 L (36-46) % MCV 84.7 (80-100) fL MCH 28.1 (26-34) PG MCHC 33.2 (30-36) % RDW 14.4 (11.6-14.8) % Plt Count 402 H (150-400) X10^3/uL Neut % (Auto) 67.8 (50-75) % Lymph % (Auto) 22.8 L (25-40) % [place] % (Auto) 7.3 (3-14) % Eos % (Auto) 0.9 L (2-4) % Baso % (Auto) 1.2 (0-2) % Neut # (Auto) 5700 (4477-4530) /uL Lymph # (Auto) 1900 (2771-2613) /uL [place] # (Auto) 600 (0-900) /uL Eos # (Auto) 100 (0-450) /uL Baso # (Auto) 100 (0-100) /uL Sodium 142 (137-145) mmol/L Potassium 3.6 (3.4-5.1) mmol/L Chloride 107 (98-107) mmol/L Carbon Dioxide 24 (22-32) mmol/L BUN 28 H (7-17) mg/dL Creatinine 0.85 (0.52-1.04) mg/dL Estimated GFR > 60 (>60) mL/min BUN/Creatinine Ratio 32.9 H (6-22) Glucose 102 H (70-99) mg/dL Calcium 9.9 (8.4-10.2) mg/dL Total Bilirubin 0.6 (0.2-1.3) mg/dL AST 28 (14-36) IU/L ALT 18 (<35) IU/L Alkaline Phosphatase 160 H (38-126) U/L Total Protein 7.6 (6.3-8.2) g/dL Albumin 3.9 (3.5-5.0) g/dL Globulin 3.7 (1.7-4.1) g/dL Albumin/Globulin Ratio 1.1 (1.0-2.8) Urine Color Yellow Urine Appearance Clear Urine pH 5.5 (4.5-8.0) Ur Specific [place] >=1.030 H (1.000-1.035) Urine Protein 1+ H (Negative) Urine Glucose (UA) Negative (Negative) g/dL Urine Ketones 1+ H (NEGATIVE) Urine Occult Blood Trace-intact (Negative) Urine Nitrate Negative (Negative) Urine Bilirubin 1+ H (NEGATIVE) Ur Bilirubin Confirm Negative (Negative) Urine Urobilinogen 0.2 (0.2) E.U./dL Ur Leukocyte Esterase Negative (NEGATIVE) Urine RBC None seen (0-5/HPF) Urine WBC 0-1/hpf (0-5/HPF) Ur Squamous Epith Cells 0-1 /hpf D (0-5/HPF) Ur Renal Epithelial Cell 1-5/hpf H (0-1/HPF) Amorphous Sediment 2+ Urine Bacteria None seen (None) Hyaline Casts 1-5/lpf (None) Vol Urine Centrifuged 10ml (spun) MDM Narrative Medical decision making narrative: Patient is 70-year-old female with recent hip fracture presenting today with increased confusion. Recently switch from Wellbutrin to sertraline and just had a UTI on October 08, which is now clear. Blood work today is overall reassuring without leukocytosis or electrolyte abnormality or ESTEBAN. She has no evidence of DKA. She appears well moving all extremities her left hip is tender and she needs help. It is also tender difficult for her to stand, however according to [facility] she has a Alea lift at baseline. She received Toradol IV. She does not appear to be in pain while at rest. I suspect her increased confusion is from Wellbutrin and sertraline recommend stopping those medications. She is not septic no other source confusion Discharge Plan Departure Patient Disposition: Home Clinical Impression: Medication reaction Instructions: DI for Adverse Drug Reaction--Other Activity Restrictions/Additional Instructions: *You have been diagnosed with no adverse drug reaction *What to do: At this time I think her having reaction to Wellbutrin or sertraline I recommend stopping both of these medications. There is no evidence of infection or electrolyte abnormality *Continue to take medications as directed Stop Wellbutrin and sertraline *Follow up with your primary care provider in 2-3 days or call [phone] \ *Return to ER if you should have increasing confusion or weakness or any new, worsening or concerning symptoms Prescriptions: No Action (DME) blood-glucose meter Misc See Rx Instructions .ROUTE .MEDSUPPLY Qty: 1 0RF Rx Instructions: As directed, once daily as needed. brand of choice (DME) lancets 28 gauge misc See Rx Instructions .ROUTE .MEDSUPPLY Qty: 100 3RF Rx Instructions: As directed, once daily as needed. brand of choice (DME) blood sugar diagnostic Strip See Rx Instructions .ROUTE .MEDSUPPLY Qty: 100 3RF Rx Instructions: As directed, once daily as needed. brand of choice (DME) Disabled Parking Permint See Rx Instructions .ROUTE .MEDSUPPLY Qty: 1 0RF Rx Instructions: I find this patient to be medically disabled and qualified for Disabled Parking as indicated and signed on the Accompanying Disabled Parking Application for individuals. amlodipine [Norvasc] 5 mg tablet 5 mg PO DAILY Qty: 90 3RF bupropion HCl [Wellbutrin XL] 150 mg tablet extended release 24 hr 150 mg PO QAM Qty: 30 11RF losartan 100 mg tablet 100 mg PO DAILY Qty: 100 3RF atorvastatin [Lipitor] 20 mg tablet 20 mg PO BEDTIME Qty: 90 3RF metformin 500 mg tablet extended release 24 hr 500 mg PO BID Qty: 180 3RF Referrals: Calixto Johnson DO [Primary Care Provider, Family Practice] Stand Alone Forms: Patient Portal/API
[2025-10-22 15:30] LABS: Add Manual Diff / Slide Review NO; Hematocrit 32.9 % (36-46); Hemoglobin 10.9 g/dL (12.0-16.0); Lymphocytes Absolute Auto 1900 /uL (1100-4500); Mean Corpuscular HGB Conc 33.2 % (30-36); Mean Corpuscular Hemoglobin 28.1 PG (26-34); Mean Corpuscular Volume 84.7 fL (80-100); Platelet Count 402 X10^3/uL (150-400)
[2025-10-22 15:49] LABS: Alanine Aminotransferase 18 IU/L (<35); Albumin 3.9 g/dL (3.5-5.0); Albumin Globulin Ratio 1.1 (1.0-2.8); Alkaline Phosphatase 160 U/L (38-126); Blood Urea Nitrogen 28 mg/dL (7-17); Calcium 9.9 mg/dL (8.4-10.2); Carbon Dioxide 24 mmol/L (22-32); Chloride 107 mmol/L (98-107); Estimated Glomerular Filt Rate > 60 mL/min (>60); Globulin 3.7 g/dL (1.7-4.1); Glucose 102 mg/dL (70-99); HEMOLYSIS < 15 (0-50); Potassium 3.6 mmol/L (3.4-5.1); Sodium 142 mmol/L (137-145); Total Protein 7.6 g/dL (6.3-8.2)
--- NOTE | 2025-10-22 16:19 | PC.NURSE ---
1445: Pt is stating she needs to have a BM. States she can stand and use the commode. Attempted to have pt stand, pt cannot independently sit on the side of the bed and was in a lot of pain. Pt assisted back to bed x2 nurses. Breif was saturated with urine. Pt cleaned up, changed and boosted to a comfortable position. Pt placed on purewick. During this interaction, pt was explaining that she didnt need to be in the ED, she had no complaints, she has a protective order against her sister, but her sister is a fast talker and sent her to the ED against her will. Pt also believes people at the nurses staion are talking about her.
[2025-10-22] MEDS: KETOROLAC 30 MG/ML VIAL 15 MG IV (17:25)
[2025-10-22 17:48] LABS: Appearance Urine UA CLEAR; Bilirubin Urine UA 1+ (NEGATIVE); Color Urine UA YELLOW; Glucose Urine UA NEGATIVE (Negative); Ketones Urine UA 1+ (NEGATIVE); Leukocyte Esterase Urine UA NEGATIVE (NEGATIVE); Nitrite Urine UA NEGATIVE (Negative); Occult Blood Urine UA TRACE-INTACT (Negative); Protein Urine UA 1+ (Negative); Specific Gravity Urine UA >=1.030 (1.000-1.035); Urobilinogen Urine UA 0.2 E.U./dL (0.2)
[2025-10-22 17:56] LABS: pH Urine UA 5.5 (4.5-8.0)
[2025-10-22 18:00] LABS: Ictotest Urine Negative (Negative)
--- NOTE | 2025-10-22 18:02 | PC.NURSE ---
Order to ambulate patient, pt was not able to stand or sit on the side of the bed independently or with assistance. Dr. Wilson notified. Had continued request to have pt ambulate. Call to [facility], spoke with nursing staff, arya that patient does not stand, she uses the domonique lift. Dr. Wilson notified.
== END 2025-10-22 18:57 | disposition home or self-care (01) ==
PROVIDERS: Emergency Provider Emergency Medicine; PCP Family Medicine
DX: R44.3 Hallucinations, unspecified (principal); T50.905A Adverse effect of unspecified drugs, medicaments and biological substances, initial encounter; I10 Essential (primary) hypertension
CPT/HCPCS: 36415; 51701; 80053; 81001; 85025; 96374; 99284; J1885